=== PATIENT | male | born 1945 | race Caucasian/White ===

== ENCOUNTER 2018-12-08 13:25 | Inpatient (IN) | payer MEDICARE ==
[~2018-12-08] VITALS: Ht 175.3 cm; Wt 62.7 kg
[~2018-12-08 13:25] MED LIST: ALBU18HF INHALATION; ASC500 PO; CALC500T11 PO; DIAZ10TA4 PO; DOCU-144 PO; LACT1CAP56 PO; LEVO25TA6 PO; LORA1TAB54 PO; MELA10TA3 PO; METH150T PO; MIRT30TA5 PO; MULT-896 PO; OXYC40TA26 PO; SERT-165 PO; TEMA30CA PO
[2018-12-08 14:02] VITALS: Ht 175.3 cm; Wt 62.7 kg
[2018-12-08] MEDS ORDERED: ONDANSETRON 4 MG INJ IV PRN (19:00)
[2018-12-08] MEDS ORDERED: ACETAMINOPHEN 325 MG TAB PO PRN (19:00)
[2018-12-09] MEDS ORDERED: SOD CHLORIDE 0.9% 500 ML IV ONE ×2 (08:30)
[2018-12-09 12:17] VITALS: BP 100/59; PULSE 85; RESP 18
[2018-12-09 14:16] VITALS: BP 118/64; PULSE 69; RESP 20
[2018-12-09 19:29] VITALS: BP 116/68; PULSE 74; RESP 18
[2018-12-09] MEDS: SERTRALINE 100 MG TAB PO SCH (20:38)
[2018-12-09] MEDS: oxyCODONE (CR) 40 MG TAB [oxyCONTIN] PO SCH (20:39)
[2018-12-09] MEDS: ALBUTEROL 18 GM INHALER INH SCH ×2 (20:42→21:00)
[2018-12-09] MEDS ORDERED: MELATONIN 10 MG PO SCH (21:00)
[2018-12-09] MEDS ORDERED: LORATADINE/PSEUDOEPHED (SR) TAB PO SCH (21:00)
[2018-12-09] MEDS ORDERED: MIRTAZAPINE 15 MG TAB PO SCH (22:00)
[2018-12-09] MEDS: DIAZEPAM 5 MG TAB PO SCH (22:24)
[2018-12-09] MEDS: ZOLPIDEM 5 MG TAB PO PRN (22:24)
[2018-12-10] MEDS: ALBUTEROL 18 GM INHALER INH SCH ×2 (01:00→04:22)
[2018-12-10 01:33] VITALS: BP 114/58; PULSE 77; RESP 18
[2018-12-10] MEDS: ALBUTEROL HFA 8 GM INHALER INH SCH ×5 (04:54→20:57)
[2018-12-10] MEDS: LEVOTHYROXINE 25 MCG TAB PO SCH (06:16)
[2018-12-10 07:47] VITALS: BP 114/63; PULSE 62; RESP 17
[2018-12-10] MEDS ORDERED: DOCUSATE SODIUM 100 MG CAP PO SCH ×2 (09:00→21:00)
[2018-12-10] MEDS ORDERED: DIPHENHYDRAMINE 25 MG CAP PO PRN (09:30)
[2018-12-10] MEDS: SERTRALINE 100 MG TAB PO SCH (11:30)
[2018-12-10] MEDS: oxyCODONE (CR) 40 MG TAB [oxyCONTIN] PO SCH ×2 (11:30→20:56)
[2018-12-10] MEDS: ASCORBIC ACID 500 MG TAB PO SCH (11:31)
[2018-12-10] MEDS: CALCIUM CARBONATE 1.25 GM TAB PO SCH (11:31)
[2018-12-10] MEDS: RELISTOR PO SCH (12:30)
[2018-12-10] MEDS ORDERED: morphine 2 MG INJ IV STA (14:18)
[2018-12-10 14:33] VITALS: BP_SYST 103; BP_SYST 112; BP_SYST 116; BP_DIAS 55; BP_DIAS 69; BP_DIAS 72; PULSE 73; RESP 17
[2018-12-10] MEDS: PROBIOTIC PO SCH (15:02)
[2018-12-10] MEDS: CENTRUM SILVER PO SCH (15:03)
[2018-12-10 19:31] VITALS: BP 107/58; PULSE 70
[2018-12-10] MEDS: DIAZEPAM 5 MG TAB PO SCH (20:56)
[2018-12-10] MEDS ORDERED: morphine 2 MG INJ IV PRN (21:00)
[2018-12-10] MEDS ORDERED: MELATONIN 10 MG PO SCH (21:00)
[2018-12-10] MEDS: ZOLPIDEM 5 MG TAB PO PRN (21:08)
[2018-12-11] MEDS: ALBUTEROL HFA 8 GM INHALER INH SCH ×4 (01:00→13:00)
[2018-12-11 02:07] VITALS: BP 101/56; PULSE 67; RESP 18
[2018-12-11 08:04] VITALS: BP 117/64; PULSE 75; RESP 19
[2018-12-11] MEDS: RELISTOR PO SCH (08:14)
[2018-12-11] MEDS: LEVOTHYROXINE 25 MCG TAB PO SCH (08:16)
[2018-12-11] MEDS: CALCIUM CARBONATE 1.25 GM TAB PO SCH (09:20)
[2018-12-11] MEDS: SERTRALINE 100 MG TAB PO SCH (09:21)
[2018-12-11] MEDS: PROBIOTIC PO SCH (09:21)
[2018-12-11] MEDS: CENTRUM SILVER PO SCH (09:21)
[2018-12-11] MEDS: ASCORBIC ACID 500 MG TAB PO SCH (09:21)
[2018-12-11] MEDS: oxyCODONE (CR) 40 MG TAB [oxyCONTIN] PO SCH (09:21)
== END 2018-12-11 14:50 | disposition home or self-care (01) | DRG 641 ==
LOC: E/R 13:25 → 2NE 19:00 → OBSVTOIN 12-10 14:19
PROVIDERS: ADMIT Family Medicine; ATTEND Family Medicine
DX: R63.1 Polydipsia (principal); R35.0 Frequency of micturition; R63.4 Abnormal weight loss; Z68.20 Body mass index [BMI] 20.0-20.9, adult; N31.9 Neuromuscular dysfunction of bladder, unspecified; R13.10 Dysphagia, unspecified; F32.9 Major depressive disorder, single episode, unspecified; M62.50 Muscle wasting and atrophy, not elsewhere classified, unspecified site; E03.9 Hypothyroidism, unspecified; G89.4 Chronic pain syndrome; Z79.891 Long term (current) use of opiate analgesic; G47.9 Sleep disorder, unspecified
CPT/HCPCS: 70450; 70553; 71046; 76775; 76856; 80048; 80307; 81003; 82533; 83735; 83930; 83935; 84100; 84300; 84403; 84443; 85025; 85651; 87086; 95819; G0378; J2270; J7030; J7040